=== PATIENT | female | born 1995 | race African-American/Black ===

== ENCOUNTER 2024-08-10 21:17 | Emergency (ER) | payer SELFPAY ==
[2024-08-10] MEDS ORDERED: Ondansetron ODT 4 MG TAB ONE (21:42)
== END 2024-08-10 23:08 | disposition home or self-care (01) ==
LOC: CSHERS 21:17
DX: R11.0 Nausea (principal); R19.7 Diarrhea, unspecified; Z55.6 Problems related to health literacy
CPT/HCPCS: 99283; Q0162